=== PATIENT | male | born 2005 | race Caucasian/White ===

== ENCOUNTER 2024-08-28 09:49 | Emergency (ER) | payer SELFPAY ==
[~2024-08-28] VITALS: Ht 172.7 cm; Wt 68.0 kg
[2024-08-28 09:57] VITALS: BP 104/77; PULSE 109; RESP 18; TEMP 37.2; O2SAT 99
[2024-08-28] MEDS ORDERED: SULF1TAB48 MT (10:49)
[2024-08-28] MEDS ORDERED: CEPH500C2 MT (10:49)
[2024-08-28] MEDS: BACITRACIN ZINC OINT UDPKT TOP ONE (11:08)
== END 2024-08-28 11:18 | disposition home or self-care (01) ==
LOC: ER 10:14
DX: L03.012 Cellulitis of left finger (principal); Z79.899 Other long term (current) drug therapy
CPT/HCPCS: 99283